=== PATIENT | male | born 1995 | race Caucasian/White ===

== ENCOUNTER 2018-09-15 18:47 | Emergency (ER) | payer OTHER ==
--- NOTE | 2018-09-15 19:52 | PDOC ---
Rapid Medical Evaluation Time Seen by Provider: 09/15/18 19:50 Medical Evaluation: 09/15/18 19:50 I have performed a brief in-person evaluation of this patient. The patient presents with a chief complaint of: decreased sensation R side of face 3 days Pertinent physical exam findings: mils R sided asymmetry I have ordered the following: nothing The patient will proceed to the ED for further evaluation. Discharge Disposition - Diagnosis Iqbal's palsy - Referrals - Patient Instructions - Post Discharge Activity
[2018-09-15 19:54] VITALS: BP 155/83; PULSE 58; TEMP 98.1; BMI 35.4
--- NOTE | 2018-09-15 20:46 | PDOC ---
History of Present Illness - General Chief Complaint: Facial Droop Stated Complaint: MUSCLES WEAKNESS Time Seen by Provider: 09/15/18 19:50 History Source: Patient Exam Limitations: No Limitations - History of Present Illness Initial Comments: 09/15/18 20:43 Patient states 2 days ago woke up and felt some tingling sensation to the right side of his face and since then has had progressive loss of function to his lips and eye. States had a mild URI last week that was not severe but resolved. Denies numbness or tingling to hands or feet, no weakness, no mental status changes. No history of neurologic disease. Severity: mild Associated Symptoms: reports: fever/chills (last week), malaise. denies: headaches Past History - Travel Traveled outside of the country in the last 30 days: No Close contact w/someone who was outside of country & ill: No - Past Medical History Allergies/Adverse Reactions: Allergies Allergy/AdvReac Type Severity Reaction Status Date / Time No Known Allergies Allergy Verified 09/15/18 19:54 Home Medications: Ambulatory Orders Valacyclovir HCl [Valtrex] 1,000 mg PO TID #21 tablet 09/15/18 predniSONE [Deltasone -] 60 mg PO DAILY #15 tablet 09/15/18 COPD: No - Suicide/Smoking/Psychosocial Hx Smoking History: Never smoked Have you smoked in the past 12 months: No Information on smoking cessation initiated: No Hx Alcohol Use: Yes Drug/Substance Use Hx: No Review of Systems - Review of Systems Able to Perform ROS?: Yes Is the patient limited [place] proficient: Yes Constitutional: Yes: Symptoms Reported, See HPI, Malaise HEENTM: Yes: Symptoms Reported, See HPI, Tearing. No: Blurred Vision, Recent change in vision Respiratory: Yes: See HPI. No: Symptoms reported Musculoskeletal: Yes: See HPI. No: Symptoms Reported Integumentary: Yes: See HPI. No: Symptoms Reported All Other Systems: Reviewed and Negative *Physical Exam - Vital Signs Last Vital Signs Temp Pulse Resp BP Pulse Ox 98.1 F 58 L 17 155/83 100 09/15/18 19:52 09/15/18 19:52 09/15/18 19:52 09/15/18 19:52 09/15/18 19:52 - Physical Exam General Appearance: Yes: Nourished, Appropriately Dressed, Apparent Distress, Mild Distress HEENT: positive: JASON, TMs Normal, Pharynx Normal, Nasal Congestion, Rhinorrhea. negative: Normal ENT Inspection (has droop to the right side of his face, involving the seventh cranial nerve- unable to blink against resistance, unable to lift right side of her mouth in a smile. Tongue is midline , and vision is intact.) Neck: positive: Supple. negative: Tender Respiratory/Chest: positive: Lungs Clear, Normal Breath Sounds Gastrointestinal/Abdominal: positive: Soft Musculoskeletal: positive: Normal Inspection Extremity: positive: Normal Capillary Refill, Normal Inspection Integumentary: positive: Normal Color, Dry, Warm Neurologic: positive: Fully Oriented, Alert, Normal Mood/Affect, Normal Response , Motor Strength 5/5. negative: superintendent power II-XII NML intact (all but seventh cranial nerve) Medical Decision Making - Medical Decision Making 09/15/18 20:47 Iqbal's palsy, will treat with Valtrex and short course of prednisone *DC/Admit/Observation/Transfer Diagnosis at time of Disposition: Iqbal's palsy - Discharge Dispostion Disposition: HOME Condition at time of disposition: Stable Decision to Admit order: No - Referrals - Patient Instructions Printed Discharge Instructions: DI for Iqbal's Palsy Additional Instructions: Rest, drink lots of fluids Use eye lubrication as often as possible Use cotton ball and lubricating drops, close eye and tape shut at nighttime until Iqbal's palsy resolves to avoid any corneal irritation or ulceration from dryness Continue prednisone 60 mg for the next 5 days total Continue Valtrex 1 g every 8 hours for one week total Follow-up with private physician and consider Lyme's disease testing Return to emergency department for worsened drooping, neurologic changes, or extension past facial nerve - Post Discharge Activity Forms/Work/School Notes: Back to Work
== END 2018-09-15 21:16 | disposition home or self-care (01) ==
LOC: JERFT 18:47
DX: G51.0 Bell's palsy (principal)
CPT/HCPCS: 99281-25